=== PATIENT | female | born 1960 | race African-American/Black ===

== ENCOUNTER 2018-05-03 12:03 | Inpatient (IN) | payer OTHER ==
[2018-05-03 14:51] VITALS: BMI 23.6
--- NOTE | 2018-05-03 14:54 | HP ---
Admission [facility] Chief Complaint: PATIENT PRESENTS FOR REHAB SERVICES FOR CRACK/COCAINE DEPENDENCE. Allergies/Adverse Reactions: Allergies Allergy/AdvReac Type Severity Reaction Status Date / Time No Known Allergies Allergy Verified 05/03/18 15:27 History of Present Illness: PATIENT PRESENTS FOR REHAB SERVICES FOR CRACK/COCAINE DEPENDENCE. PATIENT STARTED SMOKING CRACK AT AGE 17. SMOKES 20 DOLLARS OF CRACK DAILY. LAST TIME SHE SMOKED WAS 04/28/18. PATIENT ATTEMPTED REHAB IN PAST IN YEAR 1988. LONGEST PERIOD OF SOBRIETY 1 YEAR. DENIES USE OF OTHER SUBSTANCES. NO REPORTS OF COCAINE USE COMPLICATIONS. STATES SHE NEVER WENT TO HOSPITAL DUE TO COCAINE USE. PMH INCLUDES ASTHMA, OA, DEPRESSION, TOBACCO USE AND SLEEP DISTURBANCE. DENIES SI/HI AND SUICIDE ATTEMPT. Exam Limitations: No Limitations - Ebola screening Have you traveled outside of the country in the last 21 days: No (N) Have you had contact with anyone from an Ebola affected area: No Have you been sick,other than usual withdrawal symptoms: No Do you have a fever: No - Review of Systems Constitutional: Changes in sleep EENT: reports: Recent change in vision ([place]) Respiratory: reports: Cough Cardiac: reports: No Symptoms Reported GI: reports: Constipated : reports: Burning, Frequency Musculoskeletal: reports: Joint Pain Integumentary: reports: No Symptoms Reported Neuro: reports: Headache Endocrine: reports: No Symptoms Reported Hematology: reports: Anemia Psychiatric: reports: Orientated x3, Depressed Patient History - Patient Medical History Hx Anemia: Yes Hx Asthma: Yes (VENTOLIN INHALER) Hx Chronic Obstructive Pulmonary Disease (COPD): No Hx Cancer: No Hx Cardiac Disorders: No Hx Congestive Heart Failure: No Hx Hypertension: No Hx Hypercholesterolemia: No Hx Pacemaker: No HX Cerebrovascular Accident: No Hx Seizures: No Hx Dementia: No Hx Diabetes: No Hx Gastrointestinal Disorders: No Hx Liver Disease: No Hx Genitourinary Disorders: No Hx Sexually Transmitted Disorders: No Hx Renal Disease (ESRD): No Hx Thyroid Disease: No Hx Human Immunodeficiency Virus (HIV): Yes (NEGATIVE 2011) Hx Hepatitis C: No Hx Depression: Yes Hx Suicide Attempt: No Hx Bipolar Disorder: No Hx Schizophrenia: No - Patient Surgical History Past Surgical History: No - PPD History Previous Implant?: Yes Documented Results: Negative w/o proof PPD to be Administered?: Yes - Reproductive History Patient is a Female of Child Bearing Age (11 -55 yrs old): No - Smoking Cessation Smoking history: Current every day smoker Have you smoked in the past 12 months: Yes Aproximately how many cigarettes per day: 3 Hx Chewing Tobacco Use: No Initiated information on smoking cessation: Yes 'Breaking Loose' booklet given: 05/03/18 - Substance & Tx. History Hx Alcohol Use: No Hx Substance Use: Yes Substance Use Type: Cocaine Hx Substance Use Treatment: No - Substances Abused Cocaine Route: Smoking Frequency: Daily Amount used: 20 DOLLARS Age of first use: 17 Date of Last Use: 04/28/18 Family Disease History - Family Disease History Family Disease History: Other: Father (, SUBSTANCE ABUSE), Mother ( , ALCHOLISM), Brother (, SUBSTANCE ABUSE), Sister (ALIVE SUBSTANCE ABUSE) Admission Physical Exam [facility] - Physical General Appearance: Yes: No Apparent Distress, Appropriately Dressed HEENTM: Yes: EOMI, Hearing grossly Normal, Normocephalic, Normal Voice, JERRY, Pharynx Normal Respiratory: Yes: Chest Non-Tender, Lungs Clear, Normal Breath Sounds, No Respiratory Distress, No Accessory Muscle Use Neck: Yes: No masses,lesions,Nodules, Supple Breast: Yes: Breast Exam Deferred Cardiology: Yes: Regular Rhythm, Regular Rate, S1, S2 Abdominal: Yes: Normal Bowel Sounds, Non Tender, Soft Genitourinary: Yes: Burning, Frequency Back: Yes: Normal Inspection Musculoskeletal: Yes: full range of Motion, Gait Steady, Joint Stiffness Extremities: Yes: Normal Inspection, Normal Range of Motion, Non-Tender Neurological: Yes: Fully Oriented, Alert, Motor Strength 5/5, Normal Response, Depressed Affect Integumentary: Yes: Normal Color, Dry, Warm Lymphatic: Yes: Within Normal Limits - Diagnostic (1) Cocaine dependence Current Visit: Yes Status: Chronic (2) Nicotine dependence Current Visit: Yes Status: Chronic Qualifiers: Nicotine product type: cigarettes Substance use status: in withdrawal Qualified Code(s): F17.213 - Nicotine dependence, cigarettes, with withdrawal (3) Depressed affect Current Visit: Yes Status: Chronic (4) Insomnia Current Visit: Yes Status: Chronic Qualifiers: Insomnia type: unspecified Qualified Code(s): G47.00 - Insomnia, unspecified (5) Asthma Current Visit: Yes Status: Chronic Qualifiers: Asthma severity: unspecified severity Asthma complication type: unspecified Cleared for Admission [facility] - Detox or Rehab Claeared for Rehab Admission: Yes [facility] Breath Alcohol Content Breath Alcohol Content: 0 Inpatient Rehab Admission - Initial Determination Are CD services needed?: Yes Free of communicable disease: Yes Not in need of hospitalization: Yes - Rehab Admission Criteria Previous failed treatment: Yes Poor recovery environment: Yes Comorbidities: Yes Lacks judgement: Yes Patient is meeting Inpatient Rehab admission criteria:: Yes
[2018-05-03] MEDS ORDERED: MENTHOL/PHENOL 1 EACH UD MM PRN (15:08)
[2018-05-03] MEDS ORDERED: LOPERAMIDE HCL 2 MG CAPSULE PO PRN (15:08)
[2018-05-03] MEDS ORDERED: guaiFENesin/D-METHORPHAN HB 10 ML UNIT-DOSE CUPS PO PRN (15:08)
[2018-05-03] MEDS ORDERED: P-EPHED 60MG/TRIPROLIDI 2.5MG TABLET PO PRN (15:08)
[2018-05-03] MEDS ORDERED: MAG HYDROX/AL HYDROX/SIMETH 30 ML UNIT-DOSE CUP PO PRN (15:08)
[2018-05-03] MEDS ORDERED: hydrOXYzine PAMOATE 50 MG CAPSULE (FP) PO PRN (15:08)
[2018-05-03] MEDS ORDERED: MAGNESIUM CITRATE 300 ML BOTTLE PO PRN (15:08)
[2018-05-03] MEDS ORDERED: ACETAMINOPHEN 325 MG TABLET (FP) PO PRN (15:08)
[2018-05-03] MEDS ORDERED: ALBUTEROL SO4 8 GM HFA INHALER IH PRN (16:05)
[2018-05-03] MEDS ORDERED: TUBERCULIN PPD 5 TU/0.1ML VIAL ID ONE (19:53)
[2018-05-03] MEDS: BUDESONIDE/FORMETEROL FUMARATE 80/4.5 mcg INHALER IH SCH (21:17)
[2018-05-03] MEDS: THIAMINE HCL 100 MG TABLET (FP) PO SCH (21:18)
[2018-05-03] MEDS ORDERED: traZODone HCL 50 MG TABLET (FP) PO SCH (22:00)
[2018-05-03] MEDS ORDERED: MELATONIN 5 MG TABLETS PO PRN (22:00)
[2018-05-03] MEDS ORDERED: PT OWN MED DRAWER 7, Y5N ONE (22:16)
[2018-05-04] MEDS ORDERED: PT OWN MED DRAWER 7, Y5N ONE (08:45)
[2018-05-04] MEDS: BUDESONIDE/FORMETEROL FUMARATE 80/4.5 mcg INHALER IH SCH ×2 (09:56→21:16)
[2018-05-04] MEDS: PRENATAL VITAMINS W/ FOLIC ACID TABLET (FP) PO SCH (09:56)
[2018-05-04] MEDS ORDERED: ESCITALOPRAM OXALATE 20 MG TABLET (FP) PO SCH (10:00)
[2018-05-04 10:39] LABS: ALBUMIN 3.7 g/dl (3.4-5.0); ALK PHOS 98 U/L (45-117); ANION GAP 9 MMOL/L (8-16); BILIRUBIN,TOTAL 0.2 mg/dL (0.2-1); BLOOD UREA NITROGEN 11 mg/dL (7-18); CALCIUM 9.3 mg/dL (8.5-10.1); CHLORIDE 112 mmol/L (98-107); CO2 26 mmol/L (21-32); CREATININE 0.9 mg/dL (0.55-1.3); GLUCOSE,RANDOM 70 mg/dL (74-106); POTASSIUM 4.1 mmol/L (3.5-5.1); SGOT/AST 29 U/L (15-37); SGPT/ALT 30 U/L (13-61); SODIUM 146 mmol/L (136-145); TOT PROT 6.8 g/dl (6.4-8.2)
[2018-05-04 10:41] LABS: HEMATOCRIT 41.9 % (32.4-45.2); HEMOGLOBIN 13.6 GM/dL (10.7-15.3); MCH 30.1 pg (25.7-33.7); MCHC 32.5 g/dl (32.0-36.0); MEAN CELL VOLUME 92.6 fl (80-96); MEAN PLT VOLUME 10.3 fl (7.5-11.1); PLATELET COUNT 169 K/MM3 (134-434); RBC 4.52 M/mm3 (3.60-5.2); RDW 13.6 % (11.6-15.6)
--- NOTE | 2018-05-04 11:48 | EKG ---
Test Reason : Blood Pressure : / mmHG Vent. Rate : 072 BPM Atrial Rate : 072 BPM P-R Int : 126 ms QRS Dur : 094 ms QT Int : 416 ms P-R-T Axes : 073 062 020 degrees QTc Int : 455 ms NORMAL SINUS RHYTHM NORMAL ECG NO PREVIOUS ECGS AVAILABLE Confirmed by NINA ALLEN MD ([id number]) on 05/04/2018 11:47:30 AM Referred By: Confirmed By:NINA ALLEN MD
[2018-05-04] MEDS ORDERED: FLU VACCINE QUAD 60 MCG/0.5 ML (MDV 18-19) IM ONE (12:00)
[2018-05-04] MEDS: MAGNESIUM HYDROX 2400MG/30ML ORAL SUSPENSION 30 ML CUP PO PRN (15:36)
--- NOTE | 2018-05-04 19:34 | PN ---
[facility] Progress Note Note: Psychiatrist warehouse person note; Called by nursing staff to order medication for newly admitted patient from [facility]. Medication reconciliation done. Lexapro 20 mg po daily and Trazadone 50 mg po HS ordered for patient
[2018-05-04] MEDS: traZODone HCL 50 MG TABLET (FP) PO SCH (21:15)
[2018-05-04] MEDS: THIAMINE HCL 100 MG TABLET (FP) PO SCH (21:15)
[2018-05-05] MEDS ORDERED: PT OWN MED DRAWER 7, Y5N ONE (08:52)
[2018-05-05] MEDS: PRENATAL VITAMINS W/ FOLIC ACID TABLET (FP) PO SCH (09:58)
[2018-05-05] MEDS: ESCITALOPRAM OXALATE 20 MG TABLET (FP) PO SCH (09:58)
[2018-05-05] MEDS: BUDESONIDE/FORMETEROL FUMARATE 80/4.5 mcg INHALER IH SCH ×2 (09:59→21:25)
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
[2018-05-05] MEDS: traZODone HCL 50 MG TABLET (FP) PO SCH (21:24)
[2018-05-05] MEDS: THIAMINE HCL 100 MG TABLET (FP) PO SCH (21:24)
[2018-05-06] MEDS ORDERED: PT OWN MED DRAWER 7, Y5N ONE ×2 (08:40→20:23)
[2018-05-06] MEDS: ESCITALOPRAM OXALATE 20 MG TABLET (FP) PO SCH (09:39)
[2018-05-06] MEDS: BUDESONIDE/FORMETEROL FUMARATE 80/4.5 mcg INHALER IH SCH ×2 (09:40→21:31)
[2018-05-06] MEDS: PRENATAL VITAMINS W/ FOLIC ACID TABLET (FP) PO SCH (09:40)
[2018-05-06] MEDS: NICOTINE POLACRILEX 2 MG GUM BUC PRN (10:02)
[2018-05-06] MEDS: traZODone HCL 50 MG TABLET (FP) PO SCH (21:31)
[2018-05-06] MEDS: IBUPROFEN 400 MG TABLET (FP) PO PRN (21:32)
[2018-05-06] MEDS: THIAMINE HCL 100 MG TABLET (FP) PO SCH (21:36)
[2018-05-07 07:31] LABS: URINE APPEARANCE CLEAR; URINE BILIRUBIN NEGATIVE (<2.0 mg/dL); URINE COLOR LTYELLOW; URINE GLUCOSE (UA) NEGATIVE (NEGATIVE); URINE KETONE NEGATIVE (NEGATIVE); URINE LEUK ESTERASE NEGATIVE (NEGATIVE); URINE NITRITE NEGATIVE (NEGATIVE); URINE PROTEIN NEGATIVE (NEGATIVE); URINE UROBILINOGEN NEGATIVE mg/dL (0.2-1.0)
[2018-05-07] MEDS: BUDESONIDE/FORMETEROL FUMARATE 80/4.5 mcg INHALER IH SCH ×2 (09:57→21:14)
[2018-05-07] MEDS: PRENATAL VITAMINS W/ FOLIC ACID TABLET (FP) PO SCH (09:57)
[2018-05-07] MEDS: ESCITALOPRAM OXALATE 20 MG TABLET (FP) PO SCH (09:57)
[2018-05-07] MEDS: IBUPROFEN 400 MG TABLET (FP) PO PRN ×2 (09:58→21:15)
[2018-05-07] MEDS ORDERED: PT OWN MED DRAWER 7, Y5N ONE ×2 (10:47→19:10)
[2018-05-07] MEDS: traZODone HCL 50 MG TABLET (FP) PO SCH (21:14)
[2018-05-07] MEDS: THIAMINE HCL 100 MG TABLET (FP) PO SCH (21:14)
[2018-05-08] MEDS: ESCITALOPRAM OXALATE 20 MG TABLET (FP) PO SCH (09:38)
[2018-05-08] MEDS: IBUPROFEN 400 MG TABLET (FP) PO PRN ×2 (09:38→22:05)
[2018-05-08] MEDS: NICOTINE POLACRILEX 2 MG GUM BUC PRN (09:38)
[2018-05-08] MEDS: PRENATAL VITAMINS W/ FOLIC ACID TABLET (FP) PO SCH (09:38)
[2018-05-08] MEDS: BUDESONIDE/FORMETEROL FUMARATE 80/4.5 mcg INHALER IH SCH ×2 (09:39→22:06)
[2018-05-08] MEDS: MAGNESIUM HYDROX 2400MG/30ML ORAL SUSPENSION 30 ML CUP PO PRN (12:56)
[2018-05-08] MEDS: THIAMINE HCL 100 MG TABLET (FP) PO SCH (22:02)
[2018-05-08] MEDS: diphenhydrAMINE HCL 50 MG CAPSULE PO PRN (22:03)
[2018-05-08] MEDS: traZODone HCL 50 MG TABLET (FP) PO SCH (22:03)
[2018-05-08] MEDS ORDERED: PT OWN MED DRAWER 7, Y5N ONE (22:08)
[2018-05-09] MEDS ORDERED: PT OWN MED DRAWER 7, Y5N ONE (08:37)
[2018-05-09] MEDS: ESCITALOPRAM OXALATE 20 MG TABLET (FP) PO SCH (09:09)
[2018-05-09] MEDS: IBUPROFEN 400 MG TABLET (FP) PO PRN (09:09)
[2018-05-09] MEDS: BUDESONIDE/FORMETEROL FUMARATE 80/4.5 mcg INHALER IH SCH ×2 (09:10→21:14)
[2018-05-09] MEDS: PRENATAL VITAMINS W/ FOLIC ACID TABLET (FP) PO SCH (09:10)
[2018-05-09] MEDS: LIDOCAINE 5% TOPICAL PATCH TP SCH (15:13)
[2018-05-09] MEDS: THIAMINE HCL 100 MG TABLET (FP) PO SCH (21:13)
[2018-05-09] MEDS: diphenhydrAMINE HCL 50 MG CAPSULE PO PRN (21:14)
[2018-05-09] MEDS: traZODone HCL 50 MG TABLET (FP) PO SCH (21:14)
[2018-05-09] MEDS: LIDOCAINE PATCH REMOVAL MC SCH (21:14)
[2018-05-10] MEDS: PRENATAL VITAMINS W/ FOLIC ACID TABLET (FP) PO SCH (10:06)
[2018-05-10] MEDS: LIDOCAINE 5% TOPICAL PATCH TP SCH (10:06)
[2018-05-10] MEDS: ESCITALOPRAM OXALATE 20 MG TABLET (FP) PO SCH (10:06)
[2018-05-10] MEDS: BUDESONIDE/FORMETEROL FUMARATE 80/4.5 mcg INHALER IH SCH ×2 (10:07→21:23)
[2018-05-10] MEDS: IBUPROFEN 400 MG TABLET (FP) PO PRN (10:08)
[2018-05-10] MEDS: THIAMINE HCL 100 MG TABLET (FP) PO SCH (21:21)
[2018-05-10] MEDS: traZODone HCL 50 MG TABLET (FP) PO SCH (21:21)
[2018-05-10] MEDS: diphenhydrAMINE HCL 50 MG CAPSULE PO PRN (21:21)
[2018-05-10] MEDS: MAGNESIUM HYDROX 2400MG/30ML ORAL SUSPENSION 30 ML CUP PO PRN (21:22)
[2018-05-10] MEDS: LIDOCAINE PATCH REMOVAL MC SCH (21:23)
[2018-05-11] MEDS ORDERED: PT OWN MED DRAWER 7, Y5N ONE (08:45)
[2018-05-11] MEDS: PRENATAL VITAMINS W/ FOLIC ACID TABLET (FP) PO SCH (10:16)
[2018-05-11] MEDS: ESCITALOPRAM OXALATE 20 MG TABLET (FP) PO SCH (10:16)
[2018-05-11] MEDS: LIDOCAINE 5% TOPICAL PATCH TP SCH (10:16)
[2018-05-11] MEDS: BUDESONIDE/FORMETEROL FUMARATE 80/4.5 mcg INHALER IH SCH ×2 (10:18→21:17)
[2018-05-11] MEDS: NICOTINE POLACRILEX 2 MG GUM BUC PRN (12:52)
[2018-05-11] MEDS: THIAMINE HCL 100 MG TABLET (FP) PO SCH (21:17)
[2018-05-11] MEDS: diphenhydrAMINE HCL 50 MG CAPSULE PO PRN (21:17)
[2018-05-11] MEDS: traZODone HCL 50 MG TABLET (FP) PO SCH (21:17)
[2018-05-11] MEDS: LIDOCAINE PATCH REMOVAL MC SCH (21:17)
[2018-05-11] MEDS: MAGNESIUM HYDROX 2400MG/30ML ORAL SUSPENSION 30 ML CUP PO PRN (21:19)
[2018-05-12] MEDS ORDERED: PT OWN MED DRAWER 7, Y5N ONE ×2 (08:43→19:29)
[2018-05-12] MEDS: LIDOCAINE 5% TOPICAL PATCH TP SCH (09:39)
[2018-05-12] MEDS: ESCITALOPRAM OXALATE 20 MG TABLET (FP) PO SCH (09:39)
[2018-05-12] MEDS: BUDESONIDE/FORMETEROL FUMARATE 80/4.5 mcg INHALER IH SCH ×2 (09:39→21:32)
[2018-05-12] MEDS: PRENATAL VITAMINS W/ FOLIC ACID TABLET (FP) PO SCH (09:39)
[2018-05-12] MEDS: THIAMINE HCL 100 MG TABLET (FP) PO SCH (21:33)
[2018-05-12] MEDS: traZODone HCL 50 MG TABLET (FP) PO SCH (21:33)
[2018-05-12] MEDS: LIDOCAINE PATCH REMOVAL MC SCH (21:34)
[2018-05-13] MEDS: BUDESONIDE/FORMETEROL FUMARATE 80/4.5 mcg INHALER IH SCH ×2 (09:48→21:25)
[2018-05-13] MEDS: LIDOCAINE 5% TOPICAL PATCH TP SCH (09:48)
[2018-05-13] MEDS: ESCITALOPRAM OXALATE 20 MG TABLET (FP) PO SCH (09:48)
[2018-05-13] MEDS: PRENATAL VITAMINS W/ FOLIC ACID TABLET (FP) PO SCH (09:48)
[2018-05-13] MEDS: THIAMINE HCL 100 MG TABLET (FP) PO SCH (21:23)
[2018-05-13] MEDS: diphenhydrAMINE HCL 50 MG CAPSULE PO PRN (21:24)
[2018-05-13] MEDS: traZODone HCL 50 MG TABLET (FP) PO SCH (21:24)
[2018-05-13] MEDS: LIDOCAINE PATCH REMOVAL MC SCH (21:25)
[2018-05-14] MEDS ORDERED: PT OWN MED DRAWER 7, Y5N ONE (09:31)
[2018-05-14] MEDS: ESCITALOPRAM OXALATE 20 MG TABLET (FP) PO SCH (10:01)
[2018-05-14] MEDS: LIDOCAINE 5% TOPICAL PATCH TP SCH (10:01)
[2018-05-14] MEDS: BUDESONIDE/FORMETEROL FUMARATE 80/4.5 mcg INHALER IH SCH ×2 (10:01→21:33)
[2018-05-14] MEDS: PRENATAL VITAMINS W/ FOLIC ACID TABLET (FP) PO SCH (10:01)
[2018-05-14] MEDS: diphenhydrAMINE HCL 50 MG CAPSULE PO PRN (21:32)
[2018-05-14] MEDS: THIAMINE HCL 100 MG TABLET (FP) PO SCH (21:32)
[2018-05-14] MEDS: traZODone HCL 50 MG TABLET (FP) PO SCH (21:32)
[2018-05-14] MEDS: LIDOCAINE PATCH REMOVAL MC SCH (21:33)
[2018-05-15] MEDS: PRENATAL VITAMINS W/ FOLIC ACID TABLET (FP) PO SCH (09:01)
[2018-05-15] MEDS: NICOTINE POLACRILEX 2 MG GUM BUC PRN (09:01)
[2018-05-15] MEDS: ESCITALOPRAM OXALATE 20 MG TABLET (FP) PO SCH (09:02)
[2018-05-15] MEDS: LIDOCAINE 5% TOPICAL PATCH TP SCH (09:02)
[2018-05-15] MEDS: BUDESONIDE/FORMETEROL FUMARATE 80/4.5 mcg INHALER IH SCH ×2 (09:03→21:19)
[2018-05-15] MEDS: THIAMINE HCL 100 MG TABLET (FP) PO SCH (21:18)
[2018-05-15] MEDS: diphenhydrAMINE HCL 50 MG CAPSULE PO PRN (21:18)
[2018-05-15] MEDS: traZODone HCL 50 MG TABLET (FP) PO SCH (21:18)
[2018-05-15] MEDS: LIDOCAINE PATCH REMOVAL MC SCH (21:19)
[2018-05-16 07:07] VITALS: PULSE 62
[2018-05-16] MEDS ORDERED: PT OWN MED DRAWER 7, Y5N ONE ×2 (08:37→19:17)
[2018-05-16] MEDS: PRENATAL VITAMINS W/ FOLIC ACID TABLET (FP) PO SCH (10:15)
[2018-05-16] MEDS: LIDOCAINE 5% TOPICAL PATCH TP SCH (10:15)
[2018-05-16] MEDS: BUDESONIDE/FORMETEROL FUMARATE 80/4.5 mcg INHALER IH SCH ×2 (10:15→21:10)
[2018-05-16] MEDS: ESCITALOPRAM OXALATE 20 MG TABLET (FP) PO SCH (10:15)
[2018-05-16] MEDS: NICOTINE POLACRILEX 2 MG GUM BUC PRN (10:17)
[2018-05-16] MEDS: LIDOCAINE PATCH REMOVAL MC SCH (21:11)
[2018-05-16] MEDS: traZODone HCL 50 MG TABLET (FP) PO SCH (21:11)
[2018-05-16] MEDS: THIAMINE HCL 100 MG TABLET (FP) PO SCH (21:11)
[2018-05-17 07:01] VITALS: BP 119/83; TEMP 97.9
[2018-05-17] MEDS: ESCITALOPRAM OXALATE 20 MG TABLET (FP) PO SCH (09:03)
[2018-05-17] MEDS: BUDESONIDE/FORMETEROL FUMARATE 80/4.5 mcg INHALER IH SCH (09:04)
[2018-05-17] MEDS: LIDOCAINE 5% TOPICAL PATCH TP SCH (09:04)
[2018-05-17] MEDS: PRENATAL VITAMINS W/ FOLIC ACID TABLET (FP) PO SCH (09:04)
--- NOTE | 2018-05-17 13:42 | PN ---
Psychiatric Progress Note Vital Signs: Vital Signs Period Temp Pulse Resp BP Sys/Treviño Pulse Ox Last 24 Hr 97.9 F 62 18-18 119/83 Date of Session: 05/17/18 Chief Complaint:: Discharge visit HPI: Patient addressed cocaine dependence comorbid with Substance induced mood disorder. ROS: BA,Chronic arthritis. Current Side Effect: No Lab tests ordered: No Lab tests reviewed: Yes Provider note:: Patient completed this program today.She has met her treatment goals and will continue to address her issues on outpatient basis at [facility] in the [place].Patient will continue current medications as per plan .scripts for 30 days provided. Patient is stable for discharge . Supportive therapy provided focusing on relapse prevention. Total face to face time:: 30 Mental Status Exam - Mental Status Exam Alert and Oriented to: Time, Place, Person Cognitive Function: Grossly Intact Patient Appearance: Well Groomed Mood: Euthymic Affect: Appropriate, Normal Range Patient Behavior: Cooperative Speech Pattern: Clear Voice Loudness: Normal Thought Process: Goal Oriented Thought Disorder: Not Present Hallucinations: Denies Suicidal Ideation: Denies Homicidal Ideation: Denies Insight/Judgement: Fair Sleep: Fair Appetite: Fair Muscle strength/Tone: Normal Gait/Station: Normal Psychiatric Treatment Plan - Problem List (1) Asthma Qualifiers: Asthma severity: unspecified severity Asthma complication type: unspecified (3) Nicotine dependence Qualifiers: Nicotine product type: cigarettes Substance use status: in withdrawal Qualified Code(s): F17.213 - Nicotine dependence, cigarettes, with withdrawal
== END 2018-05-17 09:22 | disposition home or self-care (01) | DRG 772 ==
LOC: YASAS 12:03 → Y3E 15:04
PROVIDERS: ADMIT Psychiatry & Neurology Psychiatry; ATTEND Psychiatry & Neurology Psychiatry
PROC: HZ42ZZZ Group Counseling for Substance Abuse Treatment, Cognitive-Behavioral (ICD-10-PCS; principal; 2018-05-03)
DX: F14.20 Cocaine dependence, uncomplicated (principal); F17.213 Nicotine dependence, cigarettes, with withdrawal; G47.00 Insomnia, unspecified; R45.89 Other symptoms and signs involving emotional state; J45.909 Unspecified asthma, uncomplicated; M12.9 Arthropathy, unspecified; M19.90 Unspecified osteoarthritis, unspecified site; D64.9 Anemia, unspecified
CPT/HCPCS: 36415; 80053; 81003; 85027; 86593; 87389; 90688; 93005; 93010; G0008